=== PATIENT | female | born 1975 | race Caucasian/White ===

== ENCOUNTER 2016-10-29 10:41 | Emergency (ER) | payer SELFPAY ==
[2016-10-29 11:40] LABS: Basophils % (Auto) 0.6 % (0.0-1.8); Eosinophils % (Auto) 0.4 % (0.0-4.3); Hematocrit 34.2 % (30.3-42.9); Hemoglobin 11.3 gm/dl (10.1-14.3); Mean Corpuscular HGB Conc 33 % (30-34); Mean Corpuscular Hemoglobin 27 pg (28-32); Mean Corpuscular Volume 82 fl (79-97); Platelet Count 233 K/mm3 (140-440); Red Blood Count 4.15 M/mm3 (3.65-5.03); Red Cell Distribution Width 13.4 % (13.2-15.2); White Blood Count 6.9 K/mm3 (4.5-11.0)
--- NOTE | 2016-10-29 13:15 | Ultrasound Report ---
ULTRASOUND OB LESS THAN 14 WEEKS 3 DAYS ULTRASOUND OB TRANSVAGINAL History: Heavy vaginal bleeding during . Findings: Transabdominal and transvaginal imaging was performed. The uterus measures 9 x 4 x 4 centimeters. The endometrial stripe measures 11 mm. No intrauterine gestational sac. There does appear to be a gestational sac containing a pole in the vaginal canal adjacent to the cervix. No heart rate could be demonstrated. Estimated gestational age on ultrasound is 6 weeks, 5 days. The ovaries are within normal limits. 1.5 cm simple cyst in the left ovary is noted.. No pelvic fluid collection. Impression: No normal intrauterine . A gestational sac containing a pole is noted in the vaginal canal. Consistent with an incomplete . The endometrial stripe is borderline measuring 11 mm. 1.5 cm left ovarian cyst.
--- NOTE | 2016-10-29 13:32 | Emergency Department Report ---
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 She is previously unknown to me. She is 3, para 2. Last menstrual period is 08/22/2016. Presents to the ER with vaginal bleeding for 2 days. Positive passing clots. No chest pain or shortness of breath. No irritative or obstructive urinary symptoms. Symptoms have exacerbating or relieving factors. Minimal suprapubic cramping. MD Complaint: vaginal bleeding -: Gradual Location: suprapubic Radiation: non-radiating Severity: mild Quality: cramping Consistency: intermittent Improves with: none Worsens with: none Are you Now?: Yes Associated Symptoms: vaginal bleeding. denies: vaginal discharge, nausea/ vomiting, fever/chills, headaches, loss of appetite, dysuria, hematuria, rash, seizure, syncope, weakness - Related Data Sexually active: Yes Previous Rx's Medication Instructions Recorded Last Taken Type Ferrous Sulfate [Feosol] 325 mg PO BID #60 tablet 05/10/15 Unknown Rx Ibuprofen [Motrin 600 MG tab] 600 mg PO Q6HR #30 tablet 05/10/15 Unknown Rx oxyCODONE /ACETAMINOPHEN [Percocet 2 tab PO Q4H PRN #30 tablet 05/10/15 Unknown Rx 5/325 mg] Allergies Allergy/AdvReac Type Severity Reaction Status Date / Time No Known Allergies Allergy Verified 05/09/15 16:34 ED Review of Systems ROS: Stated complaint: X8 WKS/BLEEDING Other details as noted in HPI Constitutional: denies: malaise Eyes: denies: vision change ENT: denies: epistaxis Respiratory: denies: cough Cardiovascular: denies: chest pain Gastrointestinal: denies: vomiting Genitourinary: abnormal menses. denies: urgency, dysuria Musculoskeletal: denies: back pain Skin: denies: lesions Neurological: weakness Psychiatric: anxiety ED Past Medical Hx - Past Medical History Previous Medical History?: Yes Hx Hypertension: No Hx Congestive Heart Failure: No Hx Diabetes: No Hx Deep Vein Thrombosis: No Hx Renal Disease: No Hx Sickle Cell Disease: No Hx Seizures: No Hx Asthma: No Hx COPD: No Hx HIV: No - Surgical History Past Surgical History?: No - Social History Smoking Status: Never Smoker Substance Use Type: None - Medications Home Medications: Home Medications Medication Instructions Recorded Confirmed Last Taken Type Ferrous Sulfate [Feosol] 325 mg PO BID #60 tablet 05/10/15 Unknown Rx Ibuprofen [Motrin 600 MG tab] 600 mg PO Q6HR #30 tablet 05/10/15 Unknown Rx oxyCODONE /ACETAMINOPHEN [Percocet 2 tab PO Q4H PRN #30 tablet 05/10/15 Unknown Rx 5/325 mg] ED Physical Exam - General Limitations: No Limitations General appearance: alert, in no apparent distress - Head Head exam: Present: atraumatic, normocephalic - Eye Eye exam: Present: normal appearance, EOMI. Absent: nystagmus - ENT ENT exam: Present: normal exam, normal orophraynx, mucous membranes moist, normal external ear exam - Neck Neck exam: Present: normal inspection, full ROM. Absent: tenderness, meningismus - Respiratory Respiratory exam: Present: normal lung sounds bilaterally. Absent: respiratory distress, wheezes, rales, rhonchi, stridor, decreased breath sounds - Cardiovascular Cardiovascular Exam: Present: regular rate, normal rhythm, normal heart sounds. Absent: bradycardia, tachycardia, irregular rhythm, systolic murmur, diastolic murmur, rubs, gallop - GI/Abdominal GI/Abdominal exam: Present: soft, normal bowel sounds. Absent: distended, tenderness, guarding, rebound, rigid, pulsatile mass - External exam: Present: normal external exam Speculum exam: Present: vaginal bleeding Bi-manual exam: Present: normal bi-manual exam, other (escorted by DENIS HERNADEZ ). Absent: cervical motion tendernes, adnexal tenderness, adnexal mass - Extremities Exam Extremities exam: Present: normal inspection, full ROM, normal capillary refill. Absent: tenderness, pedal edema, joint swelling, calf tenderness - Back Exam Back exam: Present: normal inspection, full ROM. Absent: tenderness, CVA tenderness (R), CVA tenderness (L), muscle spasm, paraspinal tenderness, vertebral tenderness - Neurological Exam Neurological exam: Present: alert, oriented X3, normal gait, other (Extraocular movements intact. Tongue midline. No facial droop. Facial sensation intact to light touch in the V1, V2, V3 distribution bilaterally. 5 and 5 strength in 4 extremities.. Sensation is intact to light touch in 4 extremities.). Absent : motor sensory deficit - Psychiatric Psychiatric exam: Present: normal affect, normal mood - Skin Skin exam: Present: warm, dry, intact, normal color. Absent: rash ED Course Vital Signs 10/29/16 10/29/16 10/29/16 11:07 11:16 11:29 Temperature 98.1 F Pulse Rate 102 H 80 Respiratory 16 18 Rate Blood Pressure 150/100 Blood Pressure 106/72 [Left] O2 Sat by Pulse 16 L 100 Oximetry 10/29/16 14:01 Temperature Pulse Rate Respiratory 14 Rate Blood Pressure Blood Pressure 100/62 [Left] O2 Sat by Pulse 99 Oximetry - Reevaluation(s) Reevaluation #1: 10/29/16 14:57 Differential diagnosis: Miscarriage, inevitable miscarriage, orthostasis, vagal event Assessment and plan: 40-year-old female with history, physical, ultrasound that suggests inevitable miscarriage. During her gynecologic examination, blood was noted in the vaginal vault, and aggressively suctioned with Yankauer catheter, approximately 200 mL of blood and products were obtained. The case was discussed with the amusement park ride mechanic education counselor, Dr. Curry, who did not recommend Cytotec. She recommended expectant management, follow-up within 1 week for repeat quantitative hCG. Shortly after this happened, the patient got up to go to the bathroom, and became somewhat dizzy, and lightheaded. Her vital signs were essentially stable. Most likely a vagal event such as orthostatic event. A repeat CBC was unremarkable. Patient was given a bolus of IV fluids, felt improved. Discharge instructions were reviewed with the sales account executive, she is instructed to expect to bleed for the next few days, counseled to avoid sexual activity, and to follow-up with a local amusement park ride mechanic. Reevaluation #2: 10/29/16 15:03 I have reevaluated the patient after IV fluids and rest. She is resting comfortably, able to ambulate without difficulty, does not become orthostatic, or diaphoretic. She will be discharged at this time. ED Medical Decision Making - Lab Data Result diagrams: 10/29/16 14:23 Vital Signs 10/29/16 10/29/16 10/29/16 11:07 11:16 11:29 Temperature 98.1 F Pulse Rate 102 H 80 Respiratory 16 18 Rate Blood Pressure 150/100 Blood Pressure 106/72 [Left] O2 Sat by Pulse 16 L 100 Oximetry 10/29/16 14:01 Temperature Pulse Rate Respiratory 14 Rate Blood Pressure Blood Pressure 100/62 [Left] O2 Sat by Pulse 99 Oximetry Lab Results 10/29/16 10/29/16 10/29/16 Range/Units 11:20 11:20 11:20 WBC 6.9 (4.5-11.0) K/mm3 RBC 4.15 (3.65-5.03) M/mm3 Hgb 11.3 (10.1-14.3) gm/dl Hct 34.2 (30.3-42.9) % MCV 82 (79-97) fl MCH 27 L (28-32) pg MCHC 33 (30-34) % RDW 13.4 (13.2-15.2) % Plt Count 233 (140-440) K/mm3 Lymph % (Auto) 23.5 (13.4-35.0) % [place] % (Auto) 8.2 H (0.0-7.3) % Eos % (Auto) 0.4 (0.0-4.3) % Baso % (Auto) 0.6 (0.0-1.8) % Lymph # 1.6 (1.2-5.4) K/mm3 [place] # 0.6 (0.0-0.8) K/mm3 Eos # 0.0 (0.0-0.4) K/mm3 Baso # 0.0 (0.0-0.1) K/mm3 Seg Neutrophils % 67.3 (40.0-70.0) % Seg Neutrophils # 4.7 (1.8-7.7) K/mm3 HCG, Qual Positive (Negative) HCG, Quant 9580 H (0-4) mIU/mL Blood Type Antibody Screen 10/29/16 10/29/16 Range/Units 11:20 14:23 WBC 9.0 (4.5-11.0) K/mm3 RBC 3.78 (3.65-5.03) M/mm3 Hgb 10.1 (10.1-14.3) gm/dl Hct 31.0 (30.3-42.9) % MCV 82 (79-97) fl MCH 27 L (28-32) pg MCHC 33 (30-34) % RDW 13.8 (13.2-15.2) % Plt Count 243 (140-440) K/mm3 Lymph % (Auto) (13.4-35.0) % [place] % (Auto) (0.0-7.3) % Eos % (Auto) (0.0-4.3) % Baso % (Auto) (0.0-1.8) % Lymph # (1.2-5.4) K/mm3 [place] # (0.0-0.8) K/mm3 Eos # (0.0-0.4) K/mm3 Baso # (0.0-0.1) K/mm3 Seg Neutrophils % (40.0-70.0) % Seg Neutrophils # (1.8-7.7) K/mm3 HCG, Qual (Negative) HCG, Quant (0-4) mIU/mL Blood Type O POSITIVE Antibody Screen Negative - Radiology Data Radiology results: report reviewed, image reviewed Obstetrics ultrasound demonstrates no normal intrauterine . Gestational sac containing a pole was noted in the vaginal canal. Consistent with incomplete . Critical care attestation.: If time is entered above; I have spent that time in minutes in the direct care of this critically ill patient, excluding procedure time. ED Disposition Clinical Impression: Miscarriage Disposition: DISCHARGED TO HOME OR SELFCARE Is pt being admited?: No Does the pt Need Aspirin: No Condition: Stable Instructions: Spontaneous Miscarriage (ED) Additional Instructions: Rest and avoid heavy lifting. Avoid strenuous physical activity. Follow up with an [facility] doctor within 7 days for repeat blood test (quantitative hCG). Do not engage in sexual activity. Return to the ER right away with new pain, worsened pain, migration of pain, bleeding more than 2 pads soaked through and through per hour, dizziness, lightheadedness, chest pain, shortness of breath. Descanse y evite levantar objetos pesados. Evite la actividad fsica extenuante. Seguimiento con un mdico OB / POLICE CRIME SCENE TECHNICIAN dentro de los 7 nixon para repetir la prueba de marcela (hCG cuantitativa). No realice actividades sexuales. Vuelva al ER de inmediato con dolor nuevo, dolor agravado, migracin de dolor, sangrado de ms de 2 almohadillas empapadas a travs de y por la hora , mareos, aturdimiento, dolor en el pecho, dificultad para respirar. Referrals: [facility] [Primary Care Provider] - 3-5 Days [facility] [Provider Group] - 3-5 Days [facility] [Provider Group] - 3-5 Days [facility] [Provider Group] - 3-5 Days
[2016-10-29] MEDS ORDERED: NACL 0.9% 1000 ML 2,000 ML IV ONE (13:50)
[2016-10-29 14:48] LABS: Hemoglobin 10.1 gm/dl (10.1-14.3); Mean Corpuscular HGB Conc 33 % (30-34); Mean Corpuscular Hemoglobin 27 pg (28-32); Mean Corpuscular Volume 82 fl (79-97); Platelet Count 243 K/mm3 (140-440); Red Blood Count 3.78 M/mm3 (3.65-5.03); Red Cell Distribution Width 13.8 % (13.2-15.2)
[2016-10-29 18:25] VITALS: BP 97/55
== END 2016-10-29 17:12 | disposition home or self-care (01) ==
LOC: ED 10:41
DX: O03.9 Complete or unspecified spontaneous abortion without complication (principal)
CPT/HCPCS: 36415; 76801; 76817; 84702; 84703; 85025; 85027; 86850; 86900; 86901; 96360; 96361; 99284; J7030